=== PATIENT | male | born 1995 | race African-American/Black ===

== ENCOUNTER 2019-11-27 13:40 | Emergency (ER) | payer BC ==
[~2019-11-27] VITALS: Ht 188 cm; Wt 70.3 kg
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
[2019-11-27 13:48] VITALS: BP 124/69
[2019-11-27] MEDS ORDERED: Methocarbamol 750mg tab ORAL ONE (14:15)
--- NOTE | 2019-11-27 14:26 | NUR ---
ED Nurse Note: patient refused motrin. notified to Shandra BOB. explained that robaxin is nondrowsy muscle relaxant as Shandra BOB explained. patient tolerated robaxin without complication. patient taken to CT scan.
--- NOTE | 2019-11-27 14:33 | NUR ---
ED Nurse Note: patient came back from CT
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
[2019-11-27] MEDS ORDERED: LIDODERM700 M1 TOPIC (15:13)
[2019-11-27] MEDS ORDERED: IBUPROFEN600 M1 ORAL (15:13)
[2019-11-27] MEDS ORDERED: ROBAXIN-500MG ORAL (15:13)
[2019-11-27] MEDS ORDERED: MUPIROCIN22 GM TOPIC (15:19)
[2019-11-27 15:42] VITALS: BP 121/62
[2019-11-27 15:46] VITALS: BP 121/62
--- NOTE | 2019-11-27 15:46 | NUR ---
ER DISCHARGE NOTE: Patient is cleared to be discharged per BELLA MOULTON, pt is aox4, on room air, with stable vital signs. pt was given dc and prescription instructions, pt was able to verbalize understanding, pt id band removed without complications. pt is able to ambulate with steady gait. pt took all belongings.
== END 2019-11-27 15:46 | disposition home or self-care (01) ==
LOC: EMR 14:20
DX: S29.012A Strain of muscle and tendon of back wall of thorax, initial encounter (principal); S39.012A Strain of muscle, fascia and tendon of lower back, initial encounter; S50.812A Abrasion of left forearm, initial encounter; V49.9XXA Car occupant (driver) (passenger) injured in unspecified traffic accident, initial encounter; Y92.9 Unspecified place or not applicable
CPT/HCPCS: 72128; 99284